=== PATIENT | female | born 1955 | race Caucasian/White ===

== ENCOUNTER → 2017-03-27 | Outpatient (CLI) | payer BC | LOC: BRMIMAGING 12:15 | PROVIDERS: ATTEND Physician Assistant Medical | DX: R09.1 Pleurisy (principal) | CPT/HCPCS: 71020-PO ==

== ENCOUNTER → 2017-07-09 | Outpatient (CLI) | payer BC | LOC: BRMIMAGING 14:02 | PROVIDERS: ATTEND Family Medicine | DX: R06.02 Shortness of breath (principal) | CPT/HCPCS: 71046-PO ==